=== PATIENT | female | born 1995 | race Caucasian/White ===

== ENCOUNTER 2016-09-28 22:09 | Emergency (ER) | payer BC, MEDICAID ==
[2016-09-28 22:22] VITALS: BP 109/66
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
[2016-09-28] MEDS ORDERED: Ondansetron 4 MG Tab.DIS PO ONE (23:44)
== END 2016-09-29 00:34 | disposition home or self-care (01) ==
LOC: JD.ED 22:09
DX: R55 Syncope and collapse (principal); R42 Dizziness and giddiness; Z98.890 Other specified postprocedural states
CPT/HCPCS: 36415; 80053; 81001; 81025; 82962; 85025; 93005; 93225; 93226; 99284; A9270

== ENCOUNTER 2017-04-04 01:54 | Emergency (ER) | payer BC ==
[2017-04-04 02:05] VITALS: BP 107/74
--- NOTE | 2017-04-04 02:34 | EDM.PDOC ---
ED HPI GENERAL MEDICAL PROBLEM - General Chief Complaint: Head Injury Stated Complaint: FELL AND HIT HEAD Time Seen by Provider: 04/04/17 02:13 Source of Information: Reports: Patient, Family History Limitations: Reports: No Limitations - History of Present Illness INITIAL COMMENTS - FREE TEXT/NARRATIVE: This is a 21-year-old female. She was walking out of [employer] this evening and tripped on a mat and fell forward and hit the right side of her scalp on the door frame. She had no loss of consciousness she got up right away and she walked out of the establishment. Her friend being concerned brought her to the ER for evaluation. The patient complains of a headache and some mild dizziness but no nausea or vomiting no double vision. The patient is awake and alert and oriented. Other than the headache she also hit her right knee and also her right pinky finger but she really does not complain of them causing a problem. They're concerned that she might have a concussion. I explained to them that she will have probably a headache for the next couple of days on and off and did take some ibuprofen or Aleve for Tylenol for this and she might have a mild sore neck tomorrow but this should clear up in a few days and she should be fine. I cautioned them that if she starts having nausea and vomiting or any other severe symptoms return to the ER. Right Head Pain Score (Numeric/FACES): 6 - Related Data Allergies Allergy/AdvReac Type Severity Reaction Status Date / Time No Known Allergies Allergy Verified 04/04/17 02:06 Home Meds: Home Meds . 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: Musculoskeletal History: Reports: Other (See Below) Psychiatric History: Reports: Anxiety, Depression - Past Surgical History HEENT Surgical History: Reports: Oral Surgery Musculoskeletal Surgical History: Reports: Arthroscopic Knee Social & Family History - Tobacco Use Smoking Status *Q: Current Every Day Smoker Years of Tobacco use: 6 Packs/Tins Daily: 0.5 - Caffeine Use Caffeine Use: Reports: Soda - Alcohol Use Date of Last Drink: 04/04/17 Time of Last Drink: 01:00 - Recreational Drug Use Recreational Drug Use: Yes ED ROS GENERAL - Review of Systems Review Of Systems: See Below Constitutional: Denies: Fever, Chills HEENT: Reports: Other (As per history of present illness) Respiratory: Reports: No Symptoms Cardiovascular: Reports: No Symptoms Endocrine: Reports: No Symptoms GI/Abdominal: Reports: No Symptoms : Reports: No Symptoms Musculoskeletal: Reports: Other (As per history of present illness) Skin: Reports: Other (As per history of present illness) Neurological: Reports: Dizziness, Headache Psychiatric: Reports: No Symptoms Hematologic/Lymphatic: Reports: No Symptoms ED EXAM, HEAD INJURY - Physical Exam Exam: See Below Exam Limited By: No Limitations General Appearance: Alert, WD/WN, No Apparent Distress Head: Normocephalic, Other (His immunization of her scalp reveals no contusion or abrasion on the right scalp area there is no hematoma noted there is no facial trauma noted) Eyes: Bilateral Eye: EOMI, Normal Inspection Ears: Normal External Exam, Normal Canal, Normal TMs Nose: Normal Inspection Throat/Mouth: Normal Lips, Normal Voice, No Airway Compromise Neck: Non-Tender, Full Range of Motion Respiratory: No Respiratory Distress, Lungs Clear, Normal Breath Sounds Cardiovascular: Regular Rate, Rhythm, No Murmur GI/Abdominal Exam: Soft Back Exam: Full Range of Motion Extremities: Other (She has a small superficial cut to the tip of her right little finger that is Band-Aid, she has a small abrasion to her lateral right knee but there is no swelling no knee Tenderness no joint laxity noted) Neurologic: No Motor/Sensory Deficits, Normal Mood/Affect, Oriented x 3 Skin: Normal Color, Warm/Dry - [place] Coma Score Best Eye Response ([place]): (4) Open Spontaneously Best Verbal Response ([place]): (5) Oriented Best Motor Response ([place]): (6) Obeys Commands [place] Total: 15 Course - Vital Signs Last Recorded V/S: Last Vital Signs Temp 97 F 04/04/17 02:02 Pulse 95 04/04/17 02:02 Resp 18 04/04/17 02:02 BP 107/74 04/04/17 02:02 Pulse Ox 99 04/04/17 02:02 - Re-Assessments/Exams Free Text/Narrative Re-Assessment/Exam: 04/04/17 02:33 I spoke to them regarding the headache and possibly mild sore neck tomorrow and to take some ibuprofen Tylenol or Aleve, I encouraged her to sleep as much as she can and she will be off work on Wednesday and for her to take it easy to help this headache go away. I cautioned them that if there is any increased symptoms or nausea and vomiting related to the head injury to return to the ER Departure - Departure Time of Disposition: 02:34 Disposition: Home, Self-Care 01 Condition: Good Clinical Impression: Scalp contusion Qualifiers: Encounter type: initial encounter Qualified Code(s): S00.03XA - Contusion of scalp, initial encounter Minor head injury without loss of consciousness Qualifiers: Encounter type: initial encounter Qualified Code(s): S09.90XA - Unspecified injury of head, initial encounter Abrasion of right little finger Qualifiers: Encounter type: initial encounter Qualified Code(s): S60.416A - Abrasion of right little finger, initial encounter Abrasion of right knee Qualifiers: Encounter type: initial encounter Qualified Code(s): S80.211A - Abrasion, right knee, initial encounter Contusion of right knee Qualifiers: Encounter type: initial encounter Qualified Code(s): S80.01XA - Contusion of right knee, initial encounter - Discharge Information Instructions: Head Injury, Adult, [id number] Referrals: Chelsea Wesley PA [Primary Care Provider] - Forms: ED Department Discharge, ED Return to Work/School Form Additional Instructions: Go home and sleep as much as possible, take 2 ibuprofen or 3 ibuprofen every 6 hours as needed for the headache, if your symptoms change or you have nausea and vomiting or develop mental confusion return to the ER for reevaluation, you' ll be off work on Wednesday to return on Wednesday, follow-up with your family doctor this week for recheck, return to the ER if needed
== END 2017-04-04 02:54 | disposition home or self-care (01) ==
LOC: JD.ED 01:54
DX: S80.01XA Contusion of right knee, initial encounter (principal); S00.03XA Contusion of scalp, initial encounter; S60.416A Abrasion of right little finger, initial encounter; F17.210 Nicotine dependence, cigarettes, uncomplicated; W01.0XXA Fall on same level from slipping, tripping and stumbling without subsequent striking against object, initial encounter
CPT/HCPCS: 99282; 99283